=== PATIENT | female | born 1985 | race Caucasian/White ===

== ENCOUNTER 2018-08-17 13:40 | Emergency (ER) | payer BC, MEDICAID ==
[2018-08-17 14:13] LABS: ABSOLUTE EOSINOPHILS # (AUTO) 0.3 10^3/uL (0.0-0.6); ABSOLUTE LYMPHOCYTES (AUTO) 2.8 10^3/uL (0.5-4.7); ABSOLUTE MONOCYTES (AUTO) 0.5 10^3/uL (0.1-1.4); ABSOLUTE NEUT (AUTO) 5.6 10^3/uL (1.7-8.2); BASOPHILS % (AUTO) 0.2 % (0-2); EOSINOPHILS % (AUTO) 2.7 % (0-6); HEMATOCRIT 39.3 % (36.0-47.0); HEMOGLOBIN 13.6 g/dL (12.0-15.5); LYMPHOCYTES % (AUTO) 30.8 % (13-45); MEAN CORPUSCULAR HEMOGLOBIN 30.9 pg (27.0-33.4); MEAN CORPUSCULAR HGB CONC 34.7 g/dL (32.0-36.0); MEAN CORPUSCULAR VOLUME 89 fl (80-97); MONOCYTES % (AUTO) 5.4 % (3-13); PLATELET COUNT 452 10^3/uL (150-450); RED BLOOD COUNT 4.42 10^6/uL (3.72-5.28); RED CELL DISTRIBUTION WIDTH 13.3 % (11.5-14.0); SEGMENTED NEUTROPHILS % (AUTO) 60.9 % (42-78); TOTAL CELLS COUNTED % (AUTO) 100 %; WHITE BLOOD COUNT 9.2 10^3/uL (4.0-10.5)
[2018-08-17 14:18] LABS: ALANINE AMINOTRANSFERASE 28 U/L (9-52); ALBUMIN 4.3 g/dL (3.5-5.0); ALKALINE PHOSPHATASE 47 U/L (38-126); ANION GAP 11 (5-19); ASPARTATE AMINO TRANSFERASE 25 U/L (14-36); BILIRUBIN,DIRECT 0.3 mg/dL (0.0-0.4); BILIRUBIN,TOTAL 0.5 mg/dL (0.2-1.3); BLOOD UREA NITROGEN 14 mg/dL (7-20); CALCIUM 9.4 mg/dL (8.4-10.2); CARBON DIOXIDE 23 mmol/L (22-30); CHLORIDE 106 mmol/L (98-107); GLUCOSE 124 mg/dL (75-110); POTASSIUM 4.3 mmol/L (3.6-5.0); SODIUM 140.3 mmol/L (137-145); TOTAL PROTEIN 7.3 g/dL (6.3-8.2)
--- NOTE | 2018-08-17 14:20 | ER Document Report ---
ED General - General Chief Complaint: Altered Mental Status Stated Complaint: ALTERED MENTAL STATUS Time Seen by Provider: 08/17/18 14:03 Notes: Patient is a 33-year-old female who presents emergency department with the altered mental status, although the patient is alert and oriented during the time of my assessment. Patient states that she is on her menstrual cycle and her mother gave her a pain pill. She denies hitting her head, nausea, vomiting, or diarrhea. She stated to EMT that she "felt like she was going to have a seizure", but did not have one. Patient states that this is happened before where her mother gave her a pill and she became altered. Patient lives with her grandmother, and apparently has the mentality of a third grader. Patient denies any symptoms, other than being "sleepy." She is able to move all extremities. Denies any dizziness. - Related Data Allergies/Adverse Reactions: No Known Allergies Allergy (Unverified 08/17/18 15:05) Past Medical History - Social History Smoking Status: Unknown if Ever Smoked Family History: Reviewed & Not Pertinent Patient has suicidal ideation: No Patient has homicidal ideation: No Pulmonary Medical History: Reports: Hx Asthma Renal/ Medical History: Denies: Hx Peritoneal Dialysis Review of Systems - Review of Systems Notes: REVIEW OF SYSTEMS: CONSTITUTIONAL : Denies recent illness. Denies recent unintentional weight loss. Denies fever, chills, or sweats. EENT: Denies eye, ear, throat, or mouth pain, discharge, or symptoms. Denies nasal or sinus congestion. CARDIOVASCULAR: Denies chest pain. RESPIRATORY: Denies shortness of breath, cough, congestion, difficulty breathing, or wheezing. GASTROINTESTINAL: Denies nausea, vomiting, and diarrhea. Denies abdominal pain. Denies constipation. GENITOURINARY: Denies difficulty urinating, burning, blood in urine, urgency or frequency. MUSCULOSKELETAL: Denies neck and back pain. Denies joint pain or swelling. SKIN: Denies rash, itchiness, or lesions HEMATOLOGIC : Denies easy bruising or bleeding. LYMPHATIC: Denies swollen, painful, enlarged glands. NEUROLOGICAL: Denies no numbness or tingling denies weakness. Denies headache. Denies altered mental status. Denies alteration in speech. PSYCHIATRIC: Denies stress, anxiety, alteration in sleep patterns, or depression. All other systems reviewed and negative. Physical Exam - Vital signs Vitals: Temp Pulse Resp BP Pulse Ox 98.1 F 89 17 135/74 H 100 08/17/18 13:44 08/17/18 13:44 08/17/18 13:44 08/17/18 13:44 08/17/18 13:44 - Notes Notes: PHYSICAL EXAMINATION: GENERAL: Appears well, healthy, well-nourished, no acute distress. HEAD: Normocephalic, atraumatic. EYES: PERRL, conjunctiva normal, all extraocular movements intact, sclera nonicteric ENT: Dry mucous membranes. NECK: Supple, no noticeable swelling, redness, rash. Normal range of motion. LUNGS: Equal breath sounds bilaterally and clear to auscultation. No wheezes rales or rhonchi. CARDIOVASCULAR: S1-S2, regular rate, regular rhythm. Radial pulses 2+, normal. ABDOMEN: Normoactive bowel sounds. Soft, nontender, no guarding, no rebound tenderness, and no masses palpated. EXTREMITIES: Normal strength and range of motion, no pitting or edema. No cyanosis. NEUROLOGICAL: Moves all extremities upon command. Strength 5/5 in all extremities. PSYCH: Normal mood, normal affect. SKIN: Warm, dry. No rash, lesions, ulcerations noted. Normal skin turgor. Course - Re-evaluation Re-evalutation: 08/17/18 17:05 Patient CBC, chemistries, urinalysis, and urine drug screen are all unremarkable. EKG is normal. Patient's mother was at bedside and told me that the was given her mother's Flexeril because she had not slept in a few days. 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 Mother stated "she said that if I did not give it to her that she was going to get it herself." I have advised the mother that she should not give her daughter Flexeril anymore. They verbalized understanding. I have advised them that ibuprofen and Tylenol are the safest for menstrual cramps. She can also take Unisom as needed for inability to sleep. Verbal discharge instructions were given to the patient. They verbalized understanding. They are stable for discharge. - Vital Signs Vital signs: Temp Pulse Resp BP Pulse Ox 98.4 F 89 17 114/76 99 08/17/18 17:17 08/17/18 13:44 08/17/18 17:01 08/17/18 17:00 08/17/18 17:01 - Laboratory Result Diagrams: 08/17/18 13:48 08/17/18 13:48 Laboratory results interpreted by me: 08/17/18 08/17/18 08/17/18 13:48 13:48 14:58 Plt Count 452 H Glucose 124 H Urine Blood LARGE H Ur Leukocyte Esterase TRACE H - EKG Interpretation by Me Additional EKG results interpreted by me: 08/17/18 14:01 Sinus rhythm. Rate 69. AK 122; QRS 98; QT 428; QTC 459. No ST elevations or depressions. No arrhythmias noted. Discharge - Discharge Clinical Impression: Altered mental status Qualifiers: Altered mental status type: unspecified Qualified Code(s): R41.82 - Altered mental status, unspecified Condition: Stable Disposition: HOME, SELF-CARE Additional Instructions: You were seen today in the emergency department for altered mental status. You were altered because you were given your mother's Flexeril. Please do not take other peoples medication. If you have menstrual cramps you can take 600 mg of ibuprofen and 1000 mg of Tylenol every 6 hours as needed for your pain. You can also take Unisom every night if you cannot sleep. Please follow-up with a primary care provider in regards to this visit. Again, please do not take other people's medications.
[2018-08-17 14:22] LABS: ALCOHOL < 10 mg/dL (NONE DETECTED)
[2018-08-17 15:20] LABS: APPEARANCE,URINE CLEAR; BILIRUBIN,URINE NEGATIVE (NEGATIVE); COLOR,URINE STRAW; GLUCOSE, URINE NEGATIVE (NEGATIVE); KETONES,URINE NEGATIVE (NEGATIVE); LEUKOCYTE ESTERASE,URINE TRACE (NEGATIVE); NITRITE,URINE NEGATIVE (NEGATIVE); PROTEIN,URINE NEGATIVE (NEGATIVE); URINE SPECIFIC GRAVITY 1.009; UROBILINOGEN,URINE NEGATIVE mg/dL (<2.0)
[2018-08-17 15:40] LABS: URINE AMPHETAMINES SCREEN NEGATIVE; URINE BARBITURATES SCREEN NEGATIVE; URINE BENZODIAZEPINES SCREEN NEGATIVE; URINE COCAINE SCREEN NEGATIVE; URINE MARIJUANA (THC) SCREEN NEGATIVE; URINE METHADONE SCREEN NEGATIVE; URINE PHENCYCLIDINE SCREEN NEGATIVE
[2018-08-17 17:15] VITALS: BP 114/76
--- NOTE | 2018-08-17 18:44 | EKG REPORT ---
SEVERITY:- BORDERLINE ECG - SINUS RHYTHM BORDERLINE Q WAVE IN ANTEROLATERAL LEADS INFERIOR Q WAVES, PROBABLY NORMAL VARIATION : Confirmed by: Brian Prasad MD 17-Aug-2018 18:43:35
== END 2018-08-17 17:18 | disposition home or self-care (01) ==
LOC: ER 13:40
DX: R41.82 Altered mental status, unspecified (principal); J45.909 Unspecified asthma, uncomplicated
CPT/HCPCS: 36415; 80053; 80307; 81001; 82962; 83735; 85025; 93005; 93010; 99285

== ENCOUNTER → 2019-09-20 | Outpatient (CLI) | payer MEDICAID ==
--- NOTE | 2019-09-20 15:50 | RADIOLOGY REPORT (SQ) ---
EXAM DESCRIPTION: FOREARM LEFT COMPLETED DATE/TIME: 09/20/2019 3:34 pm REASON FOR STUDY: M79.602 PAIN IN LEFT ARM M25.562 PAIN IN LEFT KNEE M79.602 PAIN IN LEFT ARM COMPARISON: None. NUMBER OF VIEWS: Two views. TECHNIQUE: Two radiographic images acquired of the left forearm, including elbow and wrist in at [facility] one projection. LIMITATIONS: None. FINDINGS: MINERALIZATION: Normal. BONES: No acute fracture. No worrisome bone lesions. SOFT TISSUES: No obvious swelling or foreign body. OTHER: No other significant finding. IMPRESSION: NEGATIVE STUDY OF THE LEFT FOREARM. NO RADIOGRAPHIC EVIDENCE OF ACUTE INJURY. TECHNICAL DOCUMENTATION: JOB ID: [id number] 2010 [employer]- All Rights Reserved Reading location - IP/workstation name: [email or web address]
--- NOTE | 2019-09-20 15:51 | RADIOLOGY REPORT (SQ) ---
EXAM DESCRIPTION: KNEE LEFT 4 VIEW IMAGES COMPLETED DATE/TIME: 09/20/2019 3:34 pm REASON FOR STUDY: M25.562 PAIN IN LEFT KNEE M25.562 PAIN IN LEFT KNEE M79.602 PAIN IN LEFT ARM COMPARISON: None. NUMBER OF VIEWS: Four views. TECHNIQUE: AP, lateral, and both oblique radiographic images acquired of the left knee. LIMITATIONS: None. FINDINGS: MINERALIZATION: Normal. BONES: No acute fracture or dislocation. No worrisome bone lesions. JOINT: No effusion. SOFT TISSUES: No soft tissue swelling. No radio-opaque foreign body. OTHER: No other significant finding. IMPRESSION: No acute bony abnormality of the left knee. No significant degenerative change. TECHNICAL DOCUMENTATION: JOB ID: [id number] 2010 [employer]- All Rights Reserved Reading location - IP/workstation name: [email or web address]
== END ==
LOC: RAD 15:15
PROVIDERS: ATTEND Nurse Practitioner Family
DX: M25.562 Pain in left knee (principal); M79.602 Pain in left arm

== ENCOUNTER → 2019-10-12 | Outpatient (CLI) | payer MEDICAID ==
--- NOTE | 2019-10-12 12:54 | RADIOLOGY REPORT (SQ) ---
EXAM DESCRIPTION: MRI LT LOWER JOINT WITHOUT IMAGES COMPLETED DATE/TIME: 10/12/2019 11:22 am REASON FOR STUDY: KNEE PAIN (M25.562), INSTABILITY OF KNEE (M23.8X9) M23.8X9 OTHER INTERNAL DERANGE MENTS OF UNSPECIFIED KNEE COMPARISON: None. TECHNIQUE: Non arthrogram non contrasted MRI leftknee images acquired and stored on PACS. Multiplan ar images include fat sensitive sequences as T1, water sensitive sequences as FST2 or STIR, cartilage sensitive sequences as FSPD, and gradient echo sequences. LIMITATIONS: None. FINDINGS: JOINT AND BURSAE: No effusion. BONE CORTEX AND MARROW: No alteration of signal to suggest marrow replacement. No worrisome bone lesi ons. No occult fracture. ACL: Intact. No degeneration or ganglion cyst. PCL: Intact. MCL: Intact. No periligamentous edema or fluid. LCL: Intact. No periligamentous edema or fluid. MEDIAL MENISCUS: No tears. No abnormal signal. LATERAL MENISCUS: No tears. No abnormal signal. MEDIAL COMPARTMENT: Cartilage preserved. No bone bruises or reactive marrow edema. No osteophytes. LATERAL COMPARTMENT: Mild focal chondromalacia weight-bearing surface lateral femoral condyle on rimma nal image 15. No bone bruises or reactive marrow edema. No osteophytes. PATELLA: Focal midline mild chondromalacia. No subchondral cysts. Medial and lateral retinacula intac t. EXTENSOR MECHANISM: Intact. Quadriceps and patella tendons normal. SOFT TISSUES: Mild free patellar soft tissue swelling/edema without prepatellar bursal fluid. OTHER: No other significant finding. 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 Otherwise un remarkable study. TECHNICAL DOCUMENTATION: JOB ID: [id number] 2010 [employer]- All Rights Reserved Reading location - IP/workstation name: [email or web address]
== END ==
LOC: RAD 10:29
PROVIDERS: ATTEND Nurse Practitioner Family
DX: M23.8X2 Other internal derangements of left knee (principal); M25.562 Pain in left knee; M22.42 Chondromalacia patellae, left knee

== ENCOUNTER 2019-10-19 13:56 | Emergency (ER) | payer MEDICARE, MEDICAID ==
[2019-10-19 14:03] VITALS: BP 123/75
--- NOTE | 2019-10-19 14:37 | ER Document Report ---
HPI - HPI Patient complains to provider of: Right foot pain Time Seen by Provider: 10/19/19 14:23 Pain Level: 5 Context: 34-year-old female past medical history significant for plantar fasciitis presents to the emergency room complaining of worsening pain for the past 2 weeks. States she called her doctor who is calling her in a brace for her foot unsure when she will receive it. States the pain is getting intolerable. Has not taken any medications for her symptoms. She denies any trauma or injury. Currently wearing sandals. Denies any chance of . Associated Symptoms: None Exacerbated by: Movement, Walking Relieved by: Denies Similar symptoms previously: Yes Recently seen / treated by doctor: No - ROS ROS below otherwise negative: Yes - CONSTITUTIONAL Constitutional: DENIES: Fever, Chills - NEURO Neurology: DENIES: Weakness - REPRODUCTIVE Reproductive: DENIES: : - MUSCULOSKELETAL Musculoskeletal: REPORTS: Extremity pain - DERM Skin Color: Normal Skin Problems: None Past Medical History - General Information source: Patient - Social History Smoking Status: Never Smoker Frequency of alcohol use: None Drug Abuse: None Family History: Reviewed & Not Pertinent Patient has homicidal ideation: No Pulmonary Medical History: Reports: Hx Asthma Renal/ Medical History: Denies: Hx Peritoneal Dialysis Vertical Provider Document - CONSTITUTIONAL Agree With Documented VS: Yes Exam Limitations: No Limitations General Appearance: Mild Distress - INFECTION CONTROL TRAVEL OUTSIDE OF THE [place] IN LAST 30 DAYS: No - HEENT HEENT: Atraumatic, Normocephalic - NECK Neck: Normal Inspection, Supple - RESPIRATORY Respiratory: Breath Sounds Normal, No Respiratory Distress, Chest Non-Tender. negative: Rales, Rhonchi, Wheezing - CARDIOVASCULAR Cardiovascular: Regular Rate, Regular Rhythm, No Murmur - MUSCULOSKELETAL/EXTREMETIES Musculoskeletal/Extremeties: FROM, Non-Tender Notes: Benign exam. - NEURO Level of Consciousness: Awake, Alert Motor/Sensory: No Motor Deficit, No Sensory Deficit Notes: Positive right pedal pulse. Capillary refill less than 3 seconds. Ambulatory with a steady gait. Neurovascularly intact. - DERM Integumentary: Warm, Dry, No Rash Course - Re-evaluation Re-evalutation: 10/19/19 14:33 Reviewed diagnosis with patient. Counseled to get heel inserts as discussed, follow-up with her primary care physician as scheduled. Medications as prescribed. Return for any new or worsening symptoms. Patient was given strict return to the emergency room guidelines. Return for any new or worsening symptoms. All questions were answered. Patient verbalized understanding and agrees with plan of care. 10/19/19 16:03 - Vital Signs Vital signs: Temp Pulse Resp BP Pulse Ox 97.7 F 73 14 123/75 99 10/19/19 14:23 10/19/19 14:01 10/19/19 14:01 10/19/19 14:01 10/19/19 14:01 Discharge - Discharge Clinical Impression: Plantar fasciitis Condition: Stable Disposition: HOME, SELF-CARE Instructions: Plantar Fasciitis or Heel Spur ([facility]) Additional Instructions: Wear heel inserts as discussed until you get your brace from your primary care physician. Medications as prescribed. Wear hard soled shoes not sandals. Return for any new or worsening symptoms. Prescriptions: Naproxen 500 mg PO BID PRN #14 tablet PRN Reason: Referrals: RITESH BARRETT FNP-C [Primary Care Provider] - Follow up as needed COOPER MCBRIDE MD [ACTIVE PROVISIONAL STAFF] - Follow up as needed
== END 2019-10-19 14:38 | disposition home or self-care (01) ==
LOC: ER 13:56
DX: M72.2 Plantar fascial fibromatosis (principal); M79.671 Pain in right foot; J45.909 Unspecified asthma, uncomplicated
CPT/HCPCS: 99283

== ENCOUNTER 2019-10-23 19:08 | Emergency (ER) | payer MEDICARE, MEDICAID ==
[2019-10-23 19:23] VITALS: BP 130/72
[2019-10-23] MEDS ORDERED: ACETAMINOPHEN 325 MG TABLET PO ONE (19:58)
--- NOTE | 2019-10-23 20:00 | ER Document Report ---
HPI - HPI Patient complains to provider of: Right ankle pain Time Seen by Provider: 10/23/19 19:53 Onset: Just prior to arrival Onset/Duration: Sudden Quality of pain: Achy Pain Level: 5 Context: Patient states that she was waiting for her partner who was a patient in the ER. Patient states that she got out of the vehicle and walked around to the front of the hospital and developed medial right ankle pain. Patient denies any injury. Patient complains of pain with weightbearing. Patient states she was here 4 days ago and was evaluated for plantar fasciitis. Associated Symptoms: Other - Right ankle pain Exacerbated by: Standing, Movement, Walking Relieved by: Denies Similar symptoms previously: No Recently seen / treated by doctor: Yes - ROS ROS below otherwise negative: Yes Systems Reviewed and Negative: Yes All other systems reviewed and negative - CONSTITUTIONAL Constitutional: DENIES: Fever, Chills - NEURO Neurology: DENIES: Weakness - GASTROINTESTINAL Gastrointestinal: DENIES: Nausea - REPRODUCTIVE Reproductive: DENIES: : - MUSCULOSKELETAL Musculoskeletal: REPORTS: Extremity pain - DERM Skin Color: Normal Skin Problems: None Past Medical History - General Information source: Patient - Social History Smoking Status: Never Smoker Frequency of alcohol use: None Drug Abuse: None Occupation: None Lives with: Spouse/Significant other Family History: Reviewed & Not Pertinent Pulmonary Medical History: Reports: Hx Asthma Renal/ Medical History: Denies: Hx Peritoneal Dialysis Musculoskeletal Medical History: Reports Other - Plantar fasciitis Psychiatric Medical History: Reports: Hx Anxiety Surgical Hx: Negative Vertical Provider Document - CONSTITUTIONAL Agree With Documented VS: Yes Exam Limitations: No Limitations General Appearance: WD/WN, No Apparent Distress - INFECTION CONTROL TRAVEL OUTSIDE OF THE [place] IN LAST 30 DAYS: No - HEENT HEENT: Atraumatic, Normocephalic - NECK Neck: Normal Inspection, Supple - RESPIRATORY Respiratory: Breath Sounds Normal, No Respiratory Distress - CARDIOVASCULAR Cardiovascular: Regular Rate, Regular Rhythm - MUSCULOSKELETAL/EXTREMETIES Musculoskeletal/Extremeties: MAEW, Tender - Right medial ankle tenderness over malleolus area, no edema, no erythema, no calor, No Edema. negative: Edema, Eccymosis - NEURO Level of Consciousness: Awake, Alert, Appropriate Motor/Sensory: No Motor Deficit - DERM Integumentary: Warm, Dry, No Rash Course - Re-evaluation Re-evalutation: 10/23/19 21:10 No obvious fracture noted on x-ray, will immobilize and encourage outpatient follow-up with orthopedics - Vital Signs Vital signs: Temp Pulse Resp BP Pulse Ox 97.9 F 72 16 130/72 H 100 10/23/19 19:20 10/23/19 19:20 10/23/19 19:20 10/23/19 19:20 10/23/19 19:20 - Diagnostic Test Radiology reviewed: Pending, Image reviewed Procedures - Immobilization Right Ankle Pre-Proc Neuro Vasc Exam: Normal Immobilizer type: Ankle stirrup Performed by: RN Post-Proc Neuro Vasc Exam: Normal Alignment checked and good: Yes Discharge - Discharge Clinical Impression: Right ankle sprain Qualifiers: Encounter type: initial encounter Involved ligament of ankle: unspecified ligament Qualified Code(s): S93.401A - Sprain of unspecified ligament of right ankle, initial encounter Condition: Stable Disposition: HOME, SELF-CARE Instructions: Acetaminophen, Ankle Stirrup Splint ([facility]), Use of Crutches ([facility]), Ice Packs ([facility]), Sprained Ankle ([facility]) Additional Instructions: Return immediately for any new or worsening symptoms Followup with your primary care provider, call tomorrow to make a followup appointment Weightbearing as tolerated Follow up with orthopedics for further evaluation, call tomorrow for an appointment Referrals: RITESH BARRETT FNP-C [Primary Care Provider] - Follow up as needed [facility] [Provider Group] - Follow up as needed [facility] [Provider Group] - Follow up as needed
--- NOTE | 2019-10-23 21:34 | RADIOLOGY REPORT (SQ) ---
3 VIEWS OF RIGHT SHOULDER HISTORY: Medial ankle pain. COMPARISON: None. FINDINGS: The ankle mortise is preserved on these nonstress views. No acute fracture is seen. There is mild surrounding soft tissue swelling. IMPRESSION: No acute fracture or malalignment.
== END 2019-10-23 21:37 | disposition home or self-care (01) ==
LOC: ER 19:08
DX: S93.401A Sprain of unspecified ligament of right ankle, initial encounter (principal); X58.XXXA Exposure to other specified factors, initial encounter; M25.572 Pain in left ankle and joints of left foot; J45.909 Unspecified asthma, uncomplicated
CPT/HCPCS: 99283; 73610; A9270

== ENCOUNTER 2019-12-07 22:51 | Emergency (ER) | payer MEDICAID ==
[2019-12-07 22:58] VITALS: BP 117/65
[2019-12-07] MEDS ORDERED: HYDROCODONE/ACETAMINOPHEN 5-325 MG (6 TAB/ER DISP) PO PRN (23:37)
--- NOTE | 2019-12-07 23:39 | ER Document Report ---
HPI - HPI Patient complains to provider of: left knee pain Time Seen by Provider: 12/07/19 23:31 Onset: Yesterday Onset/Duration: Persistent Quality of pain: Achy Pain Level: 5 Context: Patient presents complaining of left knee pain since yesterday. Patient states that she recently received an injection in the knee and the pain is worsened since then. Patient denies any new injury. Patient denies any fever. Patient states she does have crutches at home although she did not bring them with her tonight. Patient does plan to see her doctor tomorrow for recheck. Associated Symptoms: denies: Fever Exacerbated by: Movement, Walking Relieved by: Denies Similar symptoms previously: Yes Recently seen / treated by doctor: Yes - ROS ROS below otherwise negative: Yes Systems Reviewed and Negative: Yes All other systems reviewed and negative - CONSTITUTIONAL Constitutional: DENIES: Fever, Chills - NEURO Neurology: DENIES: Weakness - REPRODUCTIVE Reproductive: DENIES: : - MUSCULOSKELETAL Musculoskeletal: REPORTS: Extremity pain. DENIES: Swelling - DERM Skin Color: Normal Skin Problems: None Past Medical History - General Information source: Patient - Social History Smoking Status: Never Smoker Frequency of alcohol use: None Drug Abuse: None Lives with: Family Family History: Reviewed & Not Pertinent Pulmonary Medical History: Reports: Hx Asthma Renal/ Medical History: Denies: Hx Peritoneal Dialysis Psychiatric Medical History: Reports: Hx Anxiety Surgical Hx: Negative Vertical Provider Document - CONSTITUTIONAL Agree With Documented VS: Yes Exam Limitations: No Limitations General Appearance: WD/WN, No Apparent Distress - INFECTION CONTROL TRAVEL OUTSIDE OF THE [place] IN LAST 30 DAYS: No - HEENT HEENT: Atraumatic, Normocephalic - NECK Neck: Normal Inspection - RESPIRATORY Respiratory: Breath Sounds Normal, No Respiratory Distress - CARDIOVASCULAR Cardiovascular: Regular Rate, Regular Rhythm Pulses: Normal: Posterior tibial - MUSCULOSKELETAL/EXTREMETIES Musculoskeletal/Extremeties: MAEW, FROM, Tender - Patient with a left knee joint tenderness, no calor, no erythema, no obvious effusion., No Edema. negative: Eccymosis Notes: Patient able to flex and extend knee joint through full range of motion. Normal gait - NEURO Level of Consciousness: Awake, Alert, Appropriate Motor/Sensory: No Motor Deficit - DERM Integumentary: Warm, Dry, No Rash Course - Re-evaluation Re-evalutation: 12/07/19 Patient with pain after recent steroid injection, patient with full range of motion, and no obvious signs of infection. Patient without any fever, erythema or calor. Patient does have an appointment with her orthopedic doctor tomorrow. Will treat symptomatically, good return precautions discussed. - Vital Signs Vital signs: Temp Pulse Resp BP Pulse Ox 97.9 F 70 16 117/65 100 12/07/19 22:56 12/07/19 22:56 12/07/19 22:56 12/07/19 22:56 12/07/19 22:56 Discharge - Discharge Clinical Impression: Left knee pain Qualifiers: Chronicity: acute Qualified Code(s): M25.562 - Pain in left knee Condition: Stable Disposition: HOME, SELF-CARE Instructions: Jluis Wrap ([facility]), Ice & Elevation ([facility]), Oral Narcotic Medication ([facility]) Additional Instructions: Return immediately for any new or worsening symptoms Followup with your primary care provider, call tomorrow to make a followup appointment Follow-up with your orthopedic doctor tomorrow for recheck Use your crutches that you have at home to help with ambulation Referrals: RITESH BARRETT FNP-C [Primary Care Provider] - Follow up as needed
== END 2019-12-07 23:50 | disposition home or self-care (01) ==
LOC: ER 22:51
DX: M25.562 Pain in left knee (principal); J45.909 Unspecified asthma, uncomplicated; Z98.890 Other specified postprocedural states
CPT/HCPCS: 99283

== ENCOUNTER 2020-01-19 22:49 | Emergency (ER) | payer MEDICAID ==
[2020-01-19] MEDS ORDERED: HYDROCODONE/ACETAMINOPHEN 5-325 MG TABLET PO ONE (23:46)
--- NOTE | 2020-01-19 23:47 | ER Document Report ---
ED Medical Screen (RME) - General Chief Complaint: Fall Stated Complaint: FALL/LEFT KNEE PAIN Time Seen by Provider: 01/19/20 23:41 Primary Care Provider: RITESH BARRETT FNP-C [Primary Care Provider] - Follow up as needed Mode of Arrival: Wheelchair Information source: Patient Notes: 34-year-old female patient presenting to the emergency department chief complaint of left knee pain after she fell this evening. Patient reports her knee gave out and she fell striking her knee onto the ground. She does report a history of issues with this knee, she sees an photo print specialist and she reports she may need surgery. She saw her orthopedic provider today prior to the fall. She reports to me that she has very thin cartilage in her knee and a "floating kneecap". Patient reports she has been taking ibuprofen for symptoms with minimal relief. Tenderness on the lateral aspect of the knee, mild swelling noted, no obvious injury or deformity noted. I have greeted and performed a rapid initial assessment of this patient. A comprehensive ED assessment and evaluation of the patient, analysis of test results and completion of the medical decision making process will be conducted by additional ED providers. I have specifically instructed the patient or family members with the patient to immediately return to any nursing staff should anything change in the patient's condition or with their chief complaint. TRAVEL OUTSIDE OF THE [place] IN LAST 30 DAYS: No - Related Data Allergies/Adverse Reactions: shrimp Allergy (Verified 12/26/19 09:59) Home Medications: synthroid. albuterol Past Medical History - Social History Chew tobacco use (# tins/day): No Frequency of alcohol use: None Drug Abuse: None Pulmonary Medical History: Reports: Hx Asthma Renal/ Medical History: Denies: Hx Peritoneal Dialysis Psychiatric Medical History: Reports: Hx Anxiety Physical Exam - Vital signs Vitals: Temp Pulse Resp BP Pulse Ox 98.0 F 108 H 20 124/82 99 01/19/20 22:55 01/19/20 22:55 01/19/20 22:55 01/19/20 22:55 01/19/20 22:55 Course - Vital Signs Vital signs: Temp Pulse Resp BP Pulse Ox 98.0 F 108 H 20 124/82 99 01/19/20 22:55 01/19/20 22:55 01/19/20 22:55 01/19/20 22:55 01/19/20 22:55 Doctor's Discharge - Discharge Referrals: RITESH BARRETT, ASSISTANT PROFESSOR OF RADIOLOGY-C [Primary Care Provider] - Follow up as needed
--- NOTE | 2020-01-20 00:40 | ER Document Report ---
HPI - HPI Time Seen by Provider: 01/19/20 23:41 Pain Level: 4 Context: Patient is a 34-year-old female that comes to the emergency department for chief complaint of left knee pain. Patient states that she was walking when suddenly she felt like her knee gave way and she fell down onto the ground landing on her kneecap. She states pain radiates up her anterior thigh and slightly down the leg. She denies any other injuries from the fall. She states it hurts to walk on the knee. She states that she follows with orthopedics for the same knee, she states that she was told that she had thin cartilage in the knee and a "floating kneecap". She states she has been taking ibuprofen but the pain is still severe. She denies surgery on the knee. She denies . She denies any other complaints. - CONSTITUTIONAL Constitutional: DENIES: Fever, Chills - REPRODUCTIVE Reproductive: DENIES: : Past Medical History - General Information source: Patient - Social History Smoking Status: Never Smoker Chew tobacco use (# tins/day): No Frequency of alcohol use: None Drug Abuse: None Lives with: Family Family History: Reviewed & Not Pertinent Pulmonary Medical History: Reports: Hx Asthma Renal/ Medical History: Denies: Hx Peritoneal Dialysis Psychiatric Medical History: Reports: Hx Anxiety Vertical Provider Document - CONSTITUTIONAL General Appearance: WD/WN, No Apparent Distress - Patient holding her left knee but she did not appear to be in distress - INFECTION CONTROL TRAVEL OUTSIDE OF THE U.S. IN LAST 30 DAYS: No - HEENT HEENT: Atraumatic, Normocephalic - RESPIRATORY Respiratory: Breath Sounds Normal - CARDIOVASCULAR Cardiovascular: Regular Rate, Regular Rhythm - GI/ABDOMEN Gastrointestinal: Abdomen Soft, Abdomen Non-Tender. negative: Abdomen Tender - BACK Back: Normal Inspection - MUSCULOSKELETAL/EXTREMETIES Musculoskeletal/Extremeties: MAEW, FROM, Tender - Patient complains with general palpation over the anterior patella; no overt signs of trauma, no noted swelling, discoloration, or abnormal heat. Full range of motion of the knee. Normal ankle, hip exam, normal distal neurovascular exam. - NEURO Level of Consciousness: Awake, Alert, Appropriate Motor/Sensory: No Motor Deficit, No Sensory Deficit - DERM Integumentary: Warm, Dry, No Rash Course - Re-evaluation Re-evalutation: X-ray shows small effusion, no concerning findings. Physical exam is unremarkable with no concerning swellings, full range of motion, no obvious signs of trauma. No other reported symptoms. Patient placed in knee immobilizer, she already has orthopedic follow-up but requests different referral and was provided with this. Discussed return precautions. Patient states understanding and agreement. - Vital Signs Vital signs: Temp Pulse Resp BP Pulse Ox 98.0 F 108 H 20 124/82 99 01/19/20 22:55 01/19/20 22:55 01/19/20 22:55 01/19/20 22:55 01/19/20 22:55 Procedures - Immobilization Left knee Pre-Proc Neuro Vasc Exam: Normal Immobilizer type: Knee immobilizer Performed by: RN Post-Proc Neuro Vasc Exam: Normal Alignment checked and good: Yes Discharge - Discharge Clinical Impression: Left knee injury Qualifiers: Encounter type: initial encounter Qualified Code(s): S89.92XA - Unspecified injury of left lower leg, initial encounter Condition: Stable Disposition: HOME, SELF-CARE Additional Instructions: Your imaging shows a small effusion underneath the left kneecap (fluid from the injury), however no fractures or concerning findings are seen. It is possible that you have internal injury to the knee, recommendation is to use the knee immobilizer, use the crutches, take [id number] inflammatory anti- inflammatory such as Naprosyn, ice the area 3-4 times a day, and follow-up with the orthopedics referral listed. Return for any concerning symptoms including severe worsening swelling or pain. Referrals: SARITA SNEED JR, [ACTIVE PROVISIONAL STAFF] - Follow up in 1 week
[2020-01-20] MEDS ORDERED: OXYCODONE HCL IR 5 MG TABLET PO ONE (00:49)
--- NOTE | 2020-01-20 00:51 | RADIOLOGY REPORT (SQ) ---
EXAM DESCRIPTION: XR KNEE 4 OR MORE VIEWS COMPLETED DATE/TME: 01/19/2020 23:46 CLINICAL HISTORY: 34 years, Female, KNEE PAIN, FELL TONIGHT COMPARISON: September 20, 2019 NUMBER OF VIEWS: 4 TECHNIQUE: AP, lateral, and bilateral oblique views of the left knee were obtained LIMITATIONS: None. FINDINGS: There is no evidence of fracture or dislocation. There is evidence of a small suprapatellar effusion. No significant joint space narrowing is seen. There is a 2 mm foreign body within the anterior subcutaneous fat of the mid lower leg, chronic and present in retrospect. IMPRESSION: Small suprapatellar effusion. No evidence of fracture or dislocation. copyright 2010 [employer]- All Rights Reserved
[2020-01-20 02:09] VITALS: BP 120/62
[2020-01-20] MEDS ORDERED: HYDROCODONE/ACETAMINOPHEN 5-325 MG (6 TAB/ER DISP) PO PRN (02:18)
== END 2020-01-20 02:24 | disposition home or self-care (01) ==
LOC: ER 22:49
DX: S89.92XA Unspecified injury of left lower leg, initial encounter (principal); M25.562 Pain in left knee; W19.XXXA Unspecified fall, initial encounter; Y93.01 Activity, walking, marching and hiking; J45.909 Unspecified asthma, uncomplicated
CPT/HCPCS: 99283; 73564; J3490

== ENCOUNTER 2020-04-16 15:12 | Emergency (ER) | payer MEDICAID ==
[2020-04-16] MEDS ORDERED: LEVETIRACETAM 1500 MG/NACL-ISO 1,500 MG/100 ML RTUPB IV ONE ×2 (16:00→16:17)
--- NOTE | 2020-04-16 16:06 | ER Document Report ---
ED Medical Screen (RME) - General Chief Complaint: Seizure Stated Complaint: SEIZURES Time Seen by Provider: 04/16/20 15:52 Primary Care Provider: VINNY WAY RN [Primary Care Provider] - Follow up as needed TRAVEL OUTSIDE OF THE U.S. IN LAST 30 DAYS: No - HPI Notes: 04/16/20 16:02 34-year-old female with a history of hypothyroidism who presents to the emergency room with a friend who has the mentality of a 10 or 12-year-old presents due to having 2 seizures yesterday evening, she does have a history of seizures but is not on any seizure medication. Patient's friend does not really know her medical history and the patient herself is a poor historian. Patient states she is having pain above her left thigh and on the top of her head which is her aura prior to having a seizure. Patient denies any chest pain, shortness of breath, nausea, vomiting, diarrhea. She reports she did have a menstrual cycle last month but is unsure when. Patient has never been seen in the emergency room for complaints of seizures. States she was evaluated last in [place] for seizures, she thinks it was back in 2007. Denies any fevers or chills. Denies any chest pain, shortness of breath. I have greeted and performed a rapid initial assessment of this patient. A comprehensive ED assessment and evaluation of the patient, analysis of test results and completion of the medical decision making process will be conducted by additional ED providers. PHYSICAL EXAMINATION: GENERAL: Well-appearing, well-nourished and in no acute distress. HEAD: Atraumatic, normocephalic. EYES: Pupils equal round extraocular movements intact, conjunctiva are normal. CV: s1, s2 regular LUNGS: No respiratory distress Musculoskeletal: Normal range of motion psych: Guarded, needing much reassurance from friend NEUROLOGICAL: Normal speech, normal gait. SKIN: Warm, Dry, normal turgor, no rashes or lesions noted. - Related Data Allergies/Adverse Reactions: shrimp Allergy (Verified 01/20/20 00:16) Past Medical History Pulmonary Medical History: Reports: Hx Asthma Renal/ Medical History: Denies: Hx Peritoneal Dialysis Psychiatric Medical History: Reports: Hx Anxiety Physical Exam - Vital signs Vitals: Temp Pulse Resp BP Pulse Ox 98.9 F 88 20 133/66 H 96 04/16/20 15:26 04/16/20 15:26 04/16/20 15:26 04/16/20 15:26 04/16/20 15:26 Course - Vital Signs Vital signs: Temp Pulse Resp BP Pulse Ox 98.9 F 88 20 133/66 H 96 04/16/20 15:26 04/16/20 15:26 04/16/20 15:26 04/16/20 15:26 04/16/20 15:26 Doctor's Discharge - Discharge Referrals: VINNY WAY RN [Primary Care Provider] - Follow up as needed
[2020-04-16] MEDS ORDERED: LORAZEPAM INJ 2 MG/1 ML VIAL IV ONE (16:11)
[2020-04-16 16:43] LABS: ABSOLUTE LYMPHOCYTES (AUTO) 1.2 10^3/uL (0.5-4.7); ABSOLUTE MONOCYTES (AUTO) 0.1 10^3/uL (0.1-1.4); ABSOLUTE NEUT (AUTO) 14.3 10^3/uL (1.7-8.2); BASOPHILS % (AUTO) 0.2 % (0-2); HEMATOCRIT 41.3 % (36.0-47.0); LYMPHOCYTES % (AUTO) 7.6 % (13-45); MEAN CORPUSCULAR HEMOGLOBIN 30.4 pg (27.0-33.4); MEAN CORPUSCULAR HGB CONC 33.9 g/dL (32.0-36.0); MEAN CORPUSCULAR VOLUME 90 fl (80-97); MONOCYTES % (AUTO) 0.7 % (3-13); PLATELET COUNT 453 10^3/uL (150-450); RED CELL DISTRIBUTION WIDTH 13.2 % (11.5-14.0); SEGMENTED NEUTROPHILS % (AUTO) 91.5 % (42-78); TOTAL CELLS COUNTED % (AUTO) 100 %; WHITE BLOOD COUNT 15.7 10^3/uL (4.0-10.5)
[2020-04-16 16:56] LABS: ALBUMIN 4.9 g/dL (3.5-5.0); ALKALINE PHOSPHATASE 49 U/L (38-126); ANION GAP 10 (5-19); ASPARTATE AMINO TRANSFERASE 23 U/L (14-36); BILIRUBIN,DIRECT 0.1 mg/dL (0.0-0.4); BILIRUBIN,TOTAL 0.4 mg/dL (0.2-1.3); BLOOD UREA NITROGEN 16 mg/dL (7-20); CALCIUM 9.8 mg/dL (8.4-10.2); CARBON DIOXIDE 22 mmol/L (22-30); CHLORIDE 103 mmol/L (98-107); GLUCOSE 159 mg/dL (75-110); POTASSIUM 4.6 mmol/L (3.6-5.0); TOTAL PROTEIN 8.1 g/dL (6.3-8.2)
[2020-04-16 18:18] LABS: APPEARANCE,URINE CLEAR; BILIRUBIN,URINE NEGATIVE (NEGATIVE); COLOR,URINE STRAW; GLUCOSE, URINE NEGATIVE (NEGATIVE); KETONES,URINE NEGATIVE (NEGATIVE); LEUKOCYTE ESTERASE,URINE NEGATIVE (NEGATIVE); NITRITE,URINE NEGATIVE (NEGATIVE); PROTEIN,URINE NEGATIVE (NEGATIVE); URINE SPECIFIC GRAVITY 1.008; UROBILINOGEN,URINE NEGATIVE mg/dL (<2.0)
[2020-04-16 18:40] LABS: URINE AMPHETAMINES SCREEN NEGATIVE; URINE BARBITURATES SCREEN NEGATIVE; URINE BENZODIAZEPINES SCREEN NEGATIVE; URINE COCAINE SCREEN NEGATIVE; URINE MARIJUANA (THC) SCREEN NEGATIVE; URINE METHADONE SCREEN NEGATIVE; URINE PHENCYCLIDINE SCREEN NEGATIVE
--- NOTE | 2020-04-16 18:53 | RADIOLOGY REPORT (SQ) ---
EXAM DESCRIPTION: CT HEAD WITHOUT IMAGES COMPLETED DATE/TIME: 04/16/2020 6:39 pm REASON FOR STUDY: 2 seizures, aura for seizure today COMPARISON: None. TECHNIQUE: Axial images acquired through the brain without intravenous contrast. Images reviewed wi th bone, brain and subdural windows. Additional sagittal and coronal reconstructions were generated. Images stored on PACS. All CT scanners at this facility use dose modulation, iterative reconstruction, and/or weight based d osing when appropriate to reduce radiation dose to as low as reasonably achievable (ALARA). [facility]: Dose Right [facility]: CareDose [facility]: Dose Right [facility]: Teradose 4D [facility]: Yobble RADIATION DOSE: CT Rad equipment meets quality standard of care and radiation dose reduction techniq ues were employed. CTDIvol: 53.2 mGy. DLP: 991 mGy-cm. mGy. LIMITATIONS: None. FINDINGS: VENTRICLES: Normal size and contour. CEREBRUM: No masses. No hemorrhage. No midline shift. No evidence for acute infarction. Normal gra y/white matter differentiation. No areas of low density in the white matter. CEREBELLUM: No masses. No hemorrhage. No alteration of density. No evidence for acute infarction. EXTRAAXIAL SPACES: No fluid collections. No masses. ORBITS AND GLOBE: No intra- or extraconal masses. Normal contour of globe without masses. CALVARIUM: No fracture. PARANASAL SINUSES: No fluid or mucosal thickening. SOFT TISSUES: No mass or hematoma. OTHER: No other significant finding. IMPRESSION: NORMAL BRAIN CT WITHOUT CONTRAST. EVIDENCE OF ACUTE STROKE: NO. COMMENT: Quality ID # [id number]: Final reports with documentation of one or more dose reduction techniques (e.g., Automated exposure control, adjustment of the mA and/or kV according to patient size, use of iterative reconstruction technique) TECHNICAL DOCUMENTATION: JOB ID: [id number] 2010 [employer]- All Rights Reserved Reading location - IP/workstation name: [email or web address]
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
[2020-04-16 22:50] LABS: FREE T4 (FREE THYROXINE) 1.48 ng/dL (0.78-2.19)
[2020-04-16 23:04] LABS: THYROID STIMULATING HORMONE 1.18 uIU/mL (0.47-4.68)
[2020-04-17] MEDS ORDERED: IBUPROFEN 600 MG TABLET PO PRN (03:38)
[2020-04-17] MEDS ORDERED: ACETAMINOPHEN 325 MG TABLET PO PRN (03:38)
[2020-04-17] MEDS ORDERED: LEVOTHYROXINE SODIUM 0.05 MG TABLET PO SCH (06:00)
[2020-04-17] MEDS ORDERED: BUSPIRONE HCL 10 MG TABLET PO SCH (10:00)
[2020-04-17] MEDS ORDERED: PANTOPRAZOLE SODIUM 40 MG TABLET.DR PO SCH (10:00)
[2020-04-17] MEDS ORDERED: MONTELUKAST SODIUM 10 MG TABLET PO SCH (10:00)
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
[2020-04-17 15:25] VITALS: BP 135/68
== END 2020-04-17 15:25 | disposition home or self-care (01) ==
LOC: ER 15:12
DX: R56.9 Unspecified convulsions (principal); F41.9 Anxiety disorder, unspecified; J45.909 Unspecified asthma, uncomplicated; R51.9 Headache, unspecified; Z91.013 Allergy to seafood; Z59.1 Inadequate housing
CPT/HCPCS: 99285; 96374; 96375; 36415; 84439; 82962; 84702; 83735; 84443; 85025; 80053; 81001; 80307; 70450; J3490 ×5; J2060; J1953